=== PATIENT | male | born 1965 | race Caucasian/White ===

== ENCOUNTER 2018-07-09 12:21 | Day surgery (SDC) | payer OTHER, SELFPAY ==
[2018-07-09 12:45] VITALS: BP 144/96; PULSE 88; RESP 16; TEMP 36.7; O2SAT 95; BMI 71.3
--- NOTE | 2018-07-09 13:12 | PM.HP.1 ---
History of Present Illness Date Patient Seen: 07/09/18 Time Patient Seen: 13:13 Chief complaint: [id number] SCREENING COLONOSCOPY Narrative: Patient is asymptomatic no melena no hematochezia and no abdominal pain is here for his 1st screening colonoscopy. Patient History Social History household members: spouse Family & Social History Social History: household members spouse Meds Home Medications Medication Instructions Recorded Confirmed Type No Known Home Medications 07/09/18 07/09/18 History Allergies Allergy/AdvReac Type Severity Reaction Status Date / Time No Known Drug Allergies Allergy Verified 07/09/18 12:44 Review of Systems Review of Systems All systems reviewed & are unremarkable except as noted in HPI and below Exam Vital Signs (past 8 hours): - 07/09/18 12:45 Temperature 98.0 F Pulse Rate 88 Respiratory Rate 16 Blood Pressure 144/96 H Pulse Oximetry 95 Oxygen Delivery Method Room Air Narrative Exam Narrative: Patient is alert and oriented vital signs are stable. Lungs are clear to auscultation . Heart regular rhythm no murmur no gallop. Abdomen is soft and nontender no masses are palpated. Rectal be done at the time of colonoscopy. Assessment & Plan Assessment & Plan narrative: Patient is asymptomatic he is here for a screening colonoscopy. It is his 1st colonoscopy. I explained the risks of bleeding and perforation he understands the risks and would like to proceed he had no further questions.
[2018-07-09] MEDS: SODIUM CHLORIDE 0.9% 1,000 ML 200 ML IV (13:14)
--- NOTE | 2018-07-09 13:37 | PM.OP.1 ---
Operative Date/Time/Diagnoses Date of procedure: 07/09/18 Time of procedure: 13:37 Pre-op diagnosis: Screening colonoscopy Post-op diagnosis: same Procedure & Clinicians Procedure: Total colonoscopy to the cecum Same procedure as scheduled: Yes Click Yes if Unassisted: Yes Anesthesia Type: Sedation Operative Notes Findings: Normal colon. Closure Type: not applicable Blood products transfused: none Procedure in detail: The patient was properly identified during surgical pause. He was given conscious sedation with this total throughout the procedure of fentanyl 200 micro g and Versed 4 mg. The flexible fiberoptic colonoscope inserted transanally to the cecum. There are no tumors no polyps no ulcerations no diverticuli procedures very well tolerated and the scope was removed without difficulty with thorough inspection of the mucosa. Complications: none Condition: stable Disposition: PACU
[2018-07-09] MEDS: fentaNYL 250 MCG/5 ML INJ IV (13:38)
[2018-07-09] MEDS: MIDAZOLAM 5 MG/5 ML VIAL IV (13:39)
[2018-07-09 13:46] VITALS: BP 132/92; PULSE 85; RESP 116; TEMP 36.4; O2SAT 95
[2018-07-09 13:49] VITALS: BP 123/95; BP 132/95; PULSE 87; PULSE 89; RESP 16; RESP 19; O2SAT 94; O2SAT 95
[2018-07-09 14:00] VITALS: BP 124/88; PULSE 75; RESP 14; TEMP 36.6; O2SAT 96
[2018-07-09 14:15] VITALS: BP 125/80; PULSE 68; RESP 16; TEMP 36.4; O2SAT 97
== END 2018-07-09 14:19 | disposition home or self-care (01) ==
PROVIDERS: PCP Physician Assistant Medical; Visit Provider Surgery
PROC: 0DJD8ZZ Inspection of Lower Intestinal Tract, Via Natural or Artificial Opening Endoscopic (ICD-10-PCS; CPT 45378; principal; 2018-07-09 13:45)
DX: Z12.11 Encounter for screening for malignant neoplasm of colon (principal)
CPT/HCPCS: 45378; J2250; J3010